=== PATIENT | male | born 1945 | race Caucasian/White ===

== ENCOUNTER 2016-11-16 10:32 | Emergency (ER) | payer MEDICARE ==
--- NOTE | 2016-11-16 11:24 | ERNOTE ---
Integumentary HPI - Narrative Date of Service: 11/16/16 - General Presenting Symptoms: other - Cellulitis Time Seen by Provider: 11/16/16 10:59 Source: patient, RN notes reviewed Exam Limitations: no limitations - Immun/Allergies/Home Medications Immunizations: IMMUNIZATION HX Immunizations Up to Date Yes History of Influenza Vaccine No Hx Pneumococcal Vaccination No Allergies/Adverse Reactions: Allergies Allergy/AdvReac Type Severity Reaction Status Date / Time No Known Allergies Allergy Verified 11/16/16 10:40 Home Medications: HOME MEDICATIONS Cephalexin 500 mg PO TID #21 tab 11/16/16 [Last Taken Unknown] - Pain Pain Score: 0 - History of Present Illness Narrative: 71 y/o male ambulatory to the ED for possible cellulitis of his left foot and lower leg. He began having symptoms on the or . He began having pain along the lateral edge of the foot and swelling in the foot and ankle. The edema and redness have continued, but he is no longer having pain. He thought initially that he may have stepped on something but has no wound. He did notice a small lump on the medial aspect of the foot. He has been taking Benadryl for the redness and swelling. He has not taken anything for pain/fever today and is afebrile. Of note, he also reports being ill for a couple of days before this started and being in bed for most of that time. Quality: Denies: itching, painful, burning Exposure: Reports: no cause identified Associated Symptoms: Reports: swelling/mass/lumps, edema. Denies: blisters, rash, change in skin texture, fever, malaise Prior Treatment: Denies: recently seen, currently on antibiotics Review of Systems - Review of Systems Constitutional: Present: recent illness. Absent: fever, chills, malaise EYE: Present: no symptoms reported ENT: Present: no symptoms reported Respiratory: Absent: shortness of breath, cough Cardiology: Absent: chest pain, palpitations, claudication Gastrointestinal/Abdominal: Absent: nausea, vomiting, abdominal pain, eating less, drinking less Genitourinary: Present: no symptoms reported Musculoskeletal: Absent: muscle pain, muscle stiffness, joint pain Skin: Present: change in color. Absent: rash, lesions Neurological: Absent: headache, dizziness/light-headedness, weakness, numbness, tingling Endocrine: Present: no symptoms reported Hematologic/Lymphatic: Absent: easy bruising, easy bleeding Psych: Absent: anxiety, depressed - Patient's Past Medical History Patient History - Medical: No pertinent hx Patient History - Cardiac/Respiratory: No pertinent hx Patient History - Cancer: No Hx of Cancer Patient History - Surgical Procedures: Appendectomy, T & A Patient History - Other: None - Social History Living Situations: home Psych History: No pertinent hx Smoking Status: Never smoker Alcohol Use: heavy Drug Use: none - Immunizations Immunizations Up to Date: Yes Hx Pneumococcal Vaccination: No History of Influenza Vaccine: No Physical Exam - Physical Exam General Appearance: Present: wd/wn, alert, no apparent distress Eye Exam: Normal inspection: bilateral Respiratory: Present: no respiratory distress, normal breath sounds, no accessory muscle use, lungs clear Cardiovascular/Chest: Present: regular rate, rhythm, no murmur, normal peripheral pulses Extremity Exam: Present: non-tender, normal range of motion, extremity edema - severe to left foot and lower leg Neurological Exam: Present: alert, oriented, normal mood/affect, no motor/ sensory deficits Skin Exam: Present: warm/dry, other - erythema to left foot and lower leg ED Progress - Results and Orders Patient's Lab Results:: I have reviewed the patient's lab results. - Vital Signs Patient's Vital Signs:: I have reviewed the patient's vital signs. Vital Signs: Vital Signs 11/16/16 11/16/16 10:36 10:57 Temperature 36.6 C 36.4 C L Pulse Rate 101 H Respiratory 16 Rate Blood Pressure 162/82 O2 Sat by Pulse 96 Oximetry - CT/Ultrasound CT/Ultrasound Narrative: Venous US of Left lower extremity shows no evidence of DVT - Progress/Reassessment Chief Complaint: Cellulitis Progress:: Unchanged Plan - Plan Plan: Labs are unremarkable aside from elevated Ddimer but US is negative for DVT. No systemic symptoms or elevated WBC that would be consistent with cellulitis. An insect sting is a possibility, but given the degree of the edema and redness, this seems somewhat unlikely as well. Will rx Keflex and treat as cellulitis. Discussed indications for needing f/u. Patient in agreement with plan. Departure Clinical Impression: Cellulitis of left leg - Departure Disposition: Home Follow Up Needed Condition: Stable Instructions: Cellulitis, Adult, [id number] Additional Instructions: Elevate leg whenever possible Return for fever, increasing pain/swelling or other concerns Prescriptions: Cephalexin 500 mg PO TID #21 tab
[2016-11-16 11:38] LABS: Hematocrit 38.4 % (42.0-52.0); Hemoglobin 12.6 gm/dL (13.5-18.0); Mean Cell Volume 94.3 fl (78-100); Mean Corpuscular Hgb Conc 32.8 g/dl (32-36); Mean Platelet Volume 8.7 fl (6.0-9.5); Neutrophil # 3.5 K/mm3 (1.3-6.0); Neutrophil % 50.1 % (42-75.0); Platelet Count 321 K/mm3 (150-450); Red Blood Count 4.07 M/mm3 (4.7-6.0); Red Cell Distribution Width 13.1 % (11.5-14.0); White Blood Count 7.1 K/mm3 (4.0-10.5)
[2016-11-16 11:52] LABS: BUN/Creatinine Ratio 17.1 (9.0-21.6); Bilirubin, Total 0.6 mg/dL (0.0-1.1); Ca. Corrected For Albumin 9.6 mg/dL (8.4-10.2); Calcium * 9.1 mg/dL (7.9-10.9); Carbon Dioxide 27.8 mmol/L (24-32.6); Potassium 3.8 mmol/L (3.4-4.6); Total Protein 7.7 gm/dL (6.2-8.2)
[2016-11-16 13:51] VITALS: BP 144/78
== END 2016-11-16 14:00 | disposition home or self-care (01) ==
LOC: ER 10:32
DX: L03.116 Cellulitis of left lower limb (principal)

== ENCOUNTER 2016-11-29 09:57 | Emergency (ER) | payer MEDICARE ==
[2016-11-29 10:04] VITALS: BP 134/82
--- NOTE | 2016-11-29 10:56 | ERNOTE ---
Lower Extremity HPI - Narrative Date of Service: 11/29/16 - General Lower Extremities Pain: leg: left Time Seen by Provider: 11/29/16 10:42 Source: patient, RN notes reviewed, old records Exam Limitations: no limitations - Immun/Allergies/Home Medications Immunizations: IMMUNIZATION HX Immunizations Up to Date Yes History of Influenza Vaccine No Hx Pneumococcal Vaccination No Allergies/Adverse Reactions: Allergies Allergy/AdvReac Type Severity Reaction Status Date / Time No Known Allergies Allergy Verified 11/29/16 10:04 Home Medications: HOME MEDICATIONS Clindamycin HCl [Cleocin HCl] 300 mg PO QID #28 capsule 11/29/16 [Last Taken Unknown] - History of Present Illness Narrative: Yovany is a 71 year old male ambulatory to the ED for ongoing swelling and redness in his left lower leg and foot. I saw the patient on 11/16/16 and treated him for cellulitis with 7 days of Keflex. His WBC was normal at that time. An ultrasound of the extremity was done and was negative for DVT. He reports that the edema has been improving and the leg is not painful, but he feels like the redness should be better by now. He denies any fevers or chills. He reports that he feels fine and has been ambulating on the extremity without any problems. Method of Injury: Reports: no apparent injury Associated Symptoms: Denies: unable to bear weight Prior Treament: Reports: recently seen, treated by physician. Denies: currently on antibiotics Review of Systems - Review of Systems Constitutional: Absent: fever, chills, fatigue, malaise, decreased activity level EYE: Present: no symptoms reported ENT: Present: no symptoms reported Respiratory: Absent: shortness of breath, cough Cardiology: Present: edema. Absent: chest pain, claudication Gastrointestinal/Abdominal: Absent: nausea, abdominal pain Genitourinary: Present: no symptoms reported Musculoskeletal: Absent: muscle pain, joint pain, joint swelling Skin: Present: change in color. Absent: rash, lesions, lumps Neurological: Absent: headache, dizziness/light-headedness, weakness, numbness, tingling Endocrine: Present: no symptoms reported Hematologic/Lymphatic: Absent: easy bruising, easy bleeding Psych: Present: no symptoms reported - Patient's Past Medical History Patient History - Medical: No pertinent hx Patient History - Cardiac/Respiratory: No pertinent hx Patient History - Cancer: No Hx of Cancer Patient History - Surgical Procedures: Appendectomy, T & A Patient History - Other: None - Social History Living Situations: home Psych History: No pertinent hx Alcohol Use: heavy Drug Use: none - Immunizations Immunizations Up to Date: Yes Hx Pneumococcal Vaccination: No History of Influenza Vaccine: No Physical Exam - Physical Exam General Appearance: Present: wd/wn, alert, no apparent distress Neck: Present: normal inspection, nontender, supple, full range of motion Respiratory: Present: no respiratory distress, normal breath sounds, no accessory muscle use, lungs clear Cardiovascular/Chest: Present: regular rate, rhythm, no murmur, normal peripheral pulses Extremity Exam: Present: normal range of motion, pedal edema - bilateral, significantly worse on left, extremity edema - moderate left leg to knee with erythema and dry, peeling skin - not significantly warm to touch, mildly tender to left anterior lower leg. Absent: calf tenderness, joint redness, joint swelling Neurological Exam: Present: alert, oriented, normal mood/affect, no motor/ sensory deficits Skin Exam: Present: warm/dry, other - erythema and dry skin to left foot and lower leg ED Progress - Results and Orders Patient's Lab Results:: I have reviewed the patient's lab results. - Vital Signs Patient's Vital Signs:: I have reviewed the patient's vital signs. Vital Signs: Vital Signs 11/29/16 10:00 Temperature 36.3 C L Pulse Rate 88 Respiratory 12 Rate Blood Pressure 134/82 O2 Sat by Pulse 98 Oximetry - Progress/Reassessment Chief Complaint: Lower Extremity Pain/ Injury Progress:: Unchanged Plan - Plan Plan: WBC remains normal, patient is without signs of systemic illness but will treat with an additional 7 days of clindamycin d/t persistent redness/edema in the extremity. Departure Clinical Impression: Cellulitis of left leg - Departure Disposition: Home Follow Up Needed Condition: Good Instructions: Cellulitis, Adult, [id number] Additional Instructions: Return for fever, increasing pain or other concerning symptoms Take a probiotic supplement daily to prevent diarrhea associated with your antibiotic - Culturelle is a good option Prescriptions: Clindamycin HCl [Cleocin HCl] 300 mg PO QID #28 capsule
[2016-11-29 11:22] LABS: Hematocrit 36.4 % (42.0-52.0); Hemoglobin 12.2 gm/dL (13.5-18.0); Mean Cell Volume 92.6 fl (78-100); Mean Corpuscular Hgb Conc 33.5 g/dl (32-36); Mean Platelet Volume 8.9 fl (6.0-9.5); Neutrophil % 54.5 % (42-75.0); Platelet Count 324 K/mm3 (150-450); Red Blood Count 3.93 M/mm3 (4.7-6.0); Red Cell Distribution Width 13.2 % (11.5-14.0); White Blood Count 7.4 K/mm3 (4.0-10.5)
[2016-11-29 11:31] LABS: Albumin * 3.2 gm/dl (3.4-5.0); Anion Gap 14.6 mmol/L (6.8-13.8); BUN/Creatinine Ratio 15.3 (9.0-21.6); Bilirubin, Total 0.7 mg/dL (0.0-1.1); Ca. Corrected For Albumin 9.2 mg/dL (8.4-10.2); Calcium * 8.9 mg/dL (7.9-10.9); Carbon Dioxide 26.7 mmol/L (24-32.6); Potassium 4.3 mmol/L (3.4-4.6); Total Protein 7.2 gm/dL (6.2-8.2)
[2016-11-29] MEDS ORDERED: CLINDAMYCIN HCL 150 MG CAPSULE PO ONE (11:39)
[2016-11-29] MEDS ORDERED: CLINDAMYCIN HCL 150 MG CAPSULE ONE (11:41)
== END 2016-11-29 11:46 | disposition home or self-care (01) ==
LOC: ER 09:57
DX: L03.116 Cellulitis of left lower limb (principal)